=== PATIENT | male | born 1955 | race African-American/Black ===

== ENCOUNTER 2024-09-24 10:23 | Inpatient (IN) | payer MEDICARE ==
[2024-09-24] VITALS (8 sets, daily range): BP systolic 137–168; BP diastolic 87–122; TEMP 97.2–99.1; O2SAT 96–98
[~2024-09-24] VITALS: Ht 182.9 cm; Wt 97.7 kg
[2024-09-24 11:15] LABS: BASO # 0.1 10^3/uL (0.0-0.2); BASO % 1.3 % (0.0-1.0); EOS # 0.1 10^3/uL (0.0-0.5); EOS % 2.9 % (0.0-3.0); HEMATOCRIT 47.1 % (42.0-52.0); HEMOGLOBIN 14.4 g/dl (13.5-17.5); LYMPH # 1.3 10^3/uL (1.5-5.0); LYMPH % 29.8 % (24.0-44.0); MEAN CORPUSCULAR HEMOGLOBIN 24.2 pg (27.0-33.0); MEAN CORPUSCULAR HGB CONC 30.6 g/dl (32.0-36.5); MONO # 0.6 10^3/uL (0.0-0.8); MONO % 13.7 % (2.0-8.0); NEUTROPHILS # 2.3 10^3/uL (1.5-8.5); NEUTROPHILS % 52.1 % (36.0-66.0); PLATELET COUNT, AUTOMATED 263 10^3/uL (150-450); RED BLOOD COUNT 5.96 10^6/uL (4.30-6.10); WHITE BLOOD COUNT 4.5 10^3/uL (4.0-10.0)
[2024-09-24 11:29] LABS: INR 1.12; PARTIAL THROMBOPLASTIN TIME 30.3 SECONDS (24.8-34.2); PROTHROMBIN TIME 14.7 SECONDS (12.5-14.5)
[2024-09-24 11:39] LABS: CK-MB VALUE MASS < 1.0 NG/ML (<3.6)
[2024-09-24 11:40] LABS: LIPASE 42 U/L (12-53)
[2024-09-24 11:42] LABS: ALBUMIN 3.3 G/DL (3.2-5.2); ALKALINE PHOSPHATASE 208 U/L (40-129); ALT/SGPT 76 U/L (7.0-40); AST/SGOT 47 U/L (<34); BILIRUBIN,DIRECT 0.5 MG/DL (<0.4); BILIRUBIN,TOTAL 1.1 MG/DL (0.3-1.2); BLOOD UREA NITROGEN 24 MG/DL (9-23); CARBON DIOXIDE LEVEL 24 MMOL/L (20-31); CHLORIDE LEVEL 106 MMOL/L (98-107); CREATININE FOR GFR 1.47 MG/DL (0.70-1.30); GLOMERULAR FILTRATION RATE 50.9 (>49); GLUCOSE, FASTING 98 MG/DL (74-106); POTASSIUM SERUM 4.6 MMOL/L (3.5-5.1); SODIUM LEVEL 139 MMOL/L (136-145); TOTAL PROTEIN 7.2 G/DL (5.7-8.2)
[2024-09-24 11:44] LABS: THYROID STIMULATING HORMONE 1.943 uIU/ML (0.55-4.78)
[2024-09-24 11:45] LABS: FREE T4 1.56 NG/DL (0.89-1.76)
[2024-09-24 11:46] LABS: CPK CREATINE PHOSPHOKINASE 91 U/L (46-171); MB/CK RELATIVE INDEX 1.09 (< OR =4)
[2024-09-24] MEDS: FUROSEMIDE 40MG/4ML VIAL IV ONE (12:47)
[2024-09-24] MEDS: NITROGLYCERIN 0.4MG SUBL TABLET SL STA (12:47)
[2024-09-24] MEDS ORDERED: ISOVUE-370 76% 100ML VIAL As Ordered ONE (12:51)
[2024-09-24 13:31] LABS: PROCALCITONIN 0.12 ng/ml
[2024-09-24 13:41] LABS: APPEARANCE, URINE CLEAR (CLEAR); BACTERIA, URINE AUTO NEGATIVE (NEGATIVE); BILIRUBIN, URINE AUTO NEGATIVE (NEGATIVE); BLOOD, URINE BLOOD NEGATIVE (NEGATIVE); COLOR, URINE YELLOW (YELLOW); GLUCOSE, URINE (UA) AUTO NEGATIVE (NEGATIVE); KETONE, URINE AUTO NEGATIVE (NEGATIVE); LEUKOCYTE ESTERASE, URINE AUTO NEGATIVE (NEGATIVE); NITRITE, URINE AUTO NEGATIVE (NEGATIVE); PROTEIN, URINE AUTO 1+ mg/dL (NEGATIVE); RBC, URINE AUTO 0 /HPF (0-3); SPECIFIC GRAVITY URINE AUTO 1.014 (1.002-1.035); SQUAMOUS EPITHELIAL CELL UR AU 0 /HPF (0-6); UROBILINOGEN, URINE AUTO 0.2 mg/dL (0.0-2.0); WBC, URINE AUTO 1 /HPF (0-3)
[2024-09-24 13:44] LABS: HEMOGLOBIN A1c 6.2 % (4.0-6.0)
[2024-09-24] MEDS ORDERED: LABETALOL 100MG/20ML VIAL IV PRN (15:10)
[2024-09-24] MEDS: METOPROLOL TART 25 MG TABLET PO ONE (15:15)
[2024-09-24] MEDS: amLODIPine 5 MG TAB PO ONE ×2 (15:15→16:52)
[2024-09-24 15:33] LABS: HEPATITIS B SURFACE ANTIGEN NEGATIVE (NEGATIVE)
[2024-09-24 15:54] LABS: HEPATITIS B CORE ANTIBODY IGM NEGATIVE (NEGATIVE); HEPATITIS C VIRUS ABY INDEX 0.03 INDEX (<0.8)
[2024-09-24] MEDS ORDERED: HOME MED LIST COMPLETE! XX SCH (15:55)
[2024-09-24 16:24] LABS: PH BODY FLUID 7.631 UNITS (NOT ESTABLISHED); SOURCE, BODY FLUID pH PLEURAL
[2024-09-24 16:40] LABS: LDH LACTATE DEHYDROGENASE 250 U/L (120-246)
[2024-09-24 16:56] LABS: PLEURAL FL COLOR YELLOW (COLORLESS); SOURCE, BODY FLUID PLEURAL
[2024-09-24 16:57] LABS: APPEARANCE, BODY FLUID HAZY (CLEAR)
[2024-09-24 17:06] LABS: SOURCE, BODY FLUID ALBUMIN PLEURAL
[2024-09-24 17:11] LABS: SOURCE, BODY FLUID GLUCOSE PLEURAL; SOURCE, BODY FLUID TRIG PLEURAL; TRIGLYCERIDE, BODY FLUID 25 MG/DL (NOT ESTABLISHED)
[2024-09-24 17:12] LABS: AMYLASE, BODY FLUID 44 U/L (NOT ESTABLISHED); LDH, BODY FLUID 126 U/L (NOT ESTABLISHED); SOURCE, BODY FLUID AMYLASE PLEURAL; SOURCE, BODY FLUID LDH PLEURAL
[2024-09-24 17:13] LABS: CHOLESTEROL, BODY FLUID 57 MG/DL (NOT ESTABLISHED); SOURCE, BODY FLUID CHOL PLEURAL
[2024-09-24 17:52] LABS: SOURCE, BODY FLUID TOT PROTEIN PLEURAL; TOTAL PROTEIN, BODY FLUID 2.8 G/DL (NOT ESTABLISHED)
[2024-09-24] MEDS: METOPROLOL TART 25 MG TABLET PO SCH (21:00)
[2024-09-24] MEDS: HEPARIN SOD (PORCINE) 5000UNITS/ML 1ML VIAL/SYRINGE SC SCH (21:00)
[2024-09-25 04:06] VITALS: BP 137/95; TEMP 97.7; O2SAT 97
[2024-09-25 05:10] LABS: HEMATOCRIT 47.7 % (42.0-52.0); HEMOGLOBIN 14.5 g/dl (13.5-17.5); MEAN CORPUSCULAR HGB CONC 30.4 g/dl (32.0-36.5); MEAN CORPUSCULAR VOLUME 78.8 fl (80.0-96.0); PLATELET COUNT, AUTOMATED 260 10^3/uL (150-450); RED BLOOD COUNT 6.05 10^6/uL (4.30-6.10); WHITE BLOOD COUNT 5.3 10^3/uL (4.0-10.0)
[2024-09-25 05:26] LABS: BLOOD UREA NITROGEN 28 MG/DL (9-23); CALCIUM LEVEL 10.2 MG/DL (8.3-10.6); CARBON DIOXIDE LEVEL 26 MMOL/L (20-31); CHLORIDE LEVEL 106 MMOL/L (98-107); CHOLESTEROL LEVEL 180 MG/DL (<200); CHOLESTEROL RISK RATIO 4.43 (<5); GLOMERULAR FILTRATION RATE > 60.0 (>49); GLUCOSE, FASTING 98 MG/DL (74-106); HDL CHOLESTEROL 40.6 MG/DL (>40); NON-HDL-C 139.4 MG/DL; POTASSIUM SERUM 4.6 MMOL/L (3.5-5.1); SODIUM LEVEL 138 MMOL/L (136-145); TRIGLYCERIDES LEVEL 77 MG/DL (<150)
[2024-09-25 07:40] VITALS: BP_SYST 137; BP_DIAS 101; BP_DIAS 98; TEMP 98.4; O2SAT 98
[2024-09-25] MEDS: amLODIPine 5 MG TAB PO SCH (09:20)
[2024-09-25] MEDS: ATORVASTATIN 20 MG TAB PO SCH (09:20)
[2024-09-25] MEDS: FUROSEMIDE 20MG/2ML VIAL IV SCH (09:21)
[2024-09-25] MEDS ORDERED: PILL CUTTER 1 EACH XX PRN (10:50)
[2024-09-25 11:33] LABS: ALBUMIN 2.9 G/DL (3.2-5.2); BILIRUBIN,DIRECT 0.4 MG/DL (<0.4); TOTAL PROTEIN 6.8 G/DL (5.7-8.2)
[2024-09-25 11:58] VITALS: BP 140/95; TEMP 98.6; O2SAT 95
[2024-09-25] MEDS: DAPAGLIFLOZIN PROPANEDIOL 10MG TABLET (FARXIGA) PO SCH (14:21)
[2024-09-25] MEDS: LOSARTAN 25 MG TAB PO SCH (14:22)
[2024-09-25 16:00] VITALS: BP 141/98; TEMP 98.3; O2SAT 96
[2024-09-25] MEDS: FUROSEMIDE 40MG/4ML VIAL IV SCH (17:05)
[2024-09-25 19:33] VITALS: BP 136/82; TEMP 98.8; O2SAT 97
[2024-09-25] MEDS: METOPROLOL SUCC *XL* 25MG TAB (TopROL *XL*) PO SCH (20:56)
[2024-09-26 00:13] VITALS: BP 141/90; TEMP 98.4; O2SAT 97
[2024-09-26 03:28] VITALS: BP 150/94; TEMP 98.2; O2SAT 98
[2024-09-26 07:50] VITALS: BP 158/96; TEMP 98.7; O2SAT 95
[2024-09-26 08:00] LABS: BASO # 0.1 10^3/uL (0.0-0.2); BASO % 1.2 % (0.0-1.0); EOS # 0.3 10^3/uL (0.0-0.5); EOS % 5.6 % (0.0-3.0); HEMATOCRIT 46.5 % (42.0-52.0); HEMOGLOBIN 14.4 g/dl (13.5-17.5); LYMPH # 1.4 10^3/uL (1.5-5.0); LYMPH % 27.6 % (24.0-44.0); MEAN CORPUSCULAR HEMOGLOBIN 24.3 pg (27.0-33.0); MEAN CORPUSCULAR VOLUME 78.5 fl (80.0-96.0); MONO # 0.6 10^3/uL (0.0-0.8); MONO % 11.9 % (2.0-8.0); NEUTROPHILS # 2.7 10^3/uL (1.5-8.5); NEUTROPHILS % 53.3 % (36.0-66.0); PLATELET COUNT, AUTOMATED 269 10^3/uL (150-450); RED BLOOD COUNT 5.92 10^6/uL (4.30-6.10)
[2024-09-26 08:27] LABS: ALBUMIN 3.1 G/DL (3.2-5.2); ALKALINE PHOSPHATASE 202 U/L (40-129); ALT/SGPT 58 U/L (7.0-40); AST/SGOT 30 U/L (<34); BILIRUBIN,TOTAL 0.9 MG/DL (0.3-1.2); BLOOD UREA NITROGEN 28 MG/DL (9-23); CALCIUM LEVEL 10.1 MG/DL (8.3-10.6); CARBON DIOXIDE LEVEL 28 MMOL/L (20-31); CHLORIDE LEVEL 105 MMOL/L (98-107); CREATININE FOR GFR 1.46 MG/DL (0.70-1.30); GLOMERULAR FILTRATION RATE > 60.0 (>49); GLUCOSE, FASTING 94 MG/DL (74-106); POTASSIUM SERUM 3.9 MMOL/L (3.5-5.1); SODIUM LEVEL 138 MMOL/L (136-145); TOTAL PROTEIN 7.4 G/DL (5.7-8.2)
[2024-09-26] MEDS ORDERED: METOPROLOL SUCC *XL* 25MG TAB (TopROL *XL*) PO SCH (09:00)
[2024-09-26] MEDS ORDERED: FURO40TA2 PO (09:27)
[2024-09-26] MEDS ORDERED: ATOR40TA75 PO (09:27)
[2024-09-26] MEDS ORDERED: FARX1TAB3 PO (09:27)
[2024-09-26] MEDS ORDERED: SPIR-10 PO (09:27)
[2024-09-26] MEDS ORDERED: METO1TAB7 PO (09:27)
[2024-09-26] MEDS ORDERED: LOSA50TA28 PO (09:27)
[2024-09-26] MEDS ORDERED: METO5TA PO (09:41)
[2024-09-26 10:15] VITALS: BP 142/94
[2024-09-28 17:57] LABS: URINE STREP PNEUMONIAE ANTIGEN NOT DETECTED (NOT DETECT)
== END 2024-09-26 15:31 | disposition home or self-care (01) | DRG 291 ==
LOC: M ED 10:23 → M ED INP 15:02 → M PCU 16:08
PROVIDERS: ADMIT Internal Medicine; ATTEND Internal Medicine
PROC: 0W993ZZ Drainage of Right Pleural Cavity, Percutaneous Approach (ICD-10-PCS; principal; 2024-09-24 15:23)
DX: I13.0 Hypertensive heart and chronic kidney disease with heart failure and stage 1 through stage 4 chronic kidney disease, or unspecified chronic kidney disease (principal); I50.23 Acute on chronic systolic (congestive) heart failure; J90 Pleural effusion, not elsewhere classified; I16.1 Hypertensive emergency; N17.9 Acute kidney failure, unspecified; E78.5 Hyperlipidemia, unspecified; R74.01 Elevation of levels of liver transaminase levels; R73.03 Prediabetes; N18.9 Chronic kidney disease, unspecified; Z79.899 Other long term (current) drug therapy; F17.210 Nicotine dependence, cigarettes, uncomplicated

== ENCOUNTER → 2025-03-08 | Outpatient (CLI) | payer MEDICARE, SELFPAY ==
[~2025-03-08] MED LIST: ATOR40TA75 PO; FARX1TAB3 PO; FURO40TA2 PO; LOSA50TA28 PO; METO1TAB7 PO; METO5TA PO; SPIR-10 PO
[2025-03-08 17:51] LABS: HEMATOCRIT 47.1 % (42.0-52.0); HEMOGLOBIN 14.4 g/dl (13.5-17.5); MEAN CORPUSCULAR HEMOGLOBIN 26.6 pg (27.0-33.0); MEAN CORPUSCULAR HGB CONC 30.6 g/dl (32.0-36.5); MEAN CORPUSCULAR VOLUME 87.1 fl (80.0-96.0); PLATELET COUNT, AUTOMATED 216 10^3/uL (150-450); RED BLOOD COUNT 5.41 10^6/uL (4.30-6.10); WHITE BLOOD COUNT 4.9 10^3/uL (4.0-10.0)
[2025-03-08 17:58] LABS: CALCIUM LEVEL 10.2 MG/DL (8.3-10.6); CHOLESTEROL RISK RATIO 4.67 (<5); CREATININE FOR GFR 1.51 MG/DL (0.70-1.30); GLOMERULAR FILTRATION RATE 50.3 (>49); HDL CHOLESTEROL 48.6 MG/DL (>40); LDL CHOLESTEROL 144.2 MG/DL (<100); NON-HDL-C 178.4 MG/DL; POTASSIUM SERUM 4.8 MMOL/L (3.5-5.1)
[2025-03-08 17:59] LABS: THYROID STIMULATING HORMONE 1.288 uIU/ML (0.55-4.78)
[2025-03-08 18:06] LABS: HEMOGLOBIN A1c 5.6 % (4.0-6.0)
== END ==
LOC: M PLALAB 15:06
PROVIDERS: ATTEND Student in an Organized Health Care Education/Training Program
DX: I50.20 Unspecified systolic (congestive) heart failure (principal)

== ENCOUNTER → 2025-06-21 | Outpatient (CLI) | payer MEDICARE, SELFPAY ==
[2025-06-21 17:49] LABS: ALT/SGPT 57.0 U/L (7.0-40); AST/SGOT 36.0 U/L (<34); CALCIUM LEVEL 10.7 MG/DL (8.3-10.6); CARBON DIOXIDE LEVEL 26.0 MMOL/L (20-31); CHLORIDE LEVEL 102.0 MMOL/L (98-107); CREATININE FOR GFR 1.54 MG/DL (0.70-1.30); GLOMERULAR FILTRATION RATE 49.1 (>49); POTASSIUM SERUM 5.4 MMOL/L (3.5-5.1); SODIUM LEVEL 138.0 MMOL/L (136-145)
== END ==
LOC: M PLALAB 15:22
DX: I50.20 Unspecified systolic (congestive) heart failure (principal)

== ENCOUNTER → 2025-06-21 | Outpatient (REF) | payer MEDICARE | LOC: M SFHCPLAZ 15:11 | PROVIDERS: ATTEND Student in an Organized Health Care Education/Training Program | DX: Z53.9 Procedure and treatment not carried out, unspecified reason (principal) ==

== ENCOUNTER → 2025-06-23 | Outpatient (REF) | payer MEDICARE | LOC: M SFHCPLAZ 20:00 | DX: Z53.9 Procedure and treatment not carried out, unspecified reason (principal) ==

== ENCOUNTER → 2025-08-17 | Outpatient (CLI) | payer MEDICARE, SELFPAY ==
[2025-08-17 15:13] LABS: ESTIMATED AVERAGE GLUCOSE 137.0 MG/DL (60-110)
[2025-08-17 15:28] LABS: TOTAL 25(OH) VITAMIN D 26.8 NG/ML (20.0-100.0)
[2025-08-17 15:33] LABS: ALT/SGPT 27.0 U/L (7.0-40); AST/SGOT 22.0 U/L (<34); CALCIUM LEVEL 9.5 MG/DL (8.3-10.6); CARBON DIOXIDE LEVEL 25.0 MMOL/L (20-31); CHLORIDE LEVEL 108.0 MMOL/L (98-107); CHOLESTEROL LEVEL 259.0 MG/DL (<200); CHOLESTEROL RISK RATIO 5.63 (<5); CREATININE FOR GFR 1.52 MG/DL (0.70-1.30); GLOMERULAR FILTRATION RATE 49.6 (>49); LDL CHOLESTEROL 192.2 MG/DL (<100); MAGNESIUM LEVEL 2.0 MG/DL (1.8-2.4); NON-HDL-C 213.0 MG/DL; POTASSIUM SERUM 4.8 MMOL/L (3.5-5.1); SODIUM LEVEL 138.0 MMOL/L (136-145); TRIGLYCERIDES LEVEL 104.0 MG/DL (<150)
== END ==
LOC: M PLALAB 11:02
DX: E83.52 Hypercalcemia (principal); E87.5 Hyperkalemia; Z13.1 Encounter for screening for diabetes mellitus; E78.2 Mixed hyperlipidemia

== ENCOUNTER → 2025-08-17 | Outpatient (REF) | payer MEDICARE | LOC: M SFHCPLAZ 10:45 | PROVIDERS: ATTEND Family Medicine | DX: Z53.9 Procedure and treatment not carried out, unspecified reason (principal); E87.5 Hyperkalemia; Z13.1 Encounter for screening for diabetes mellitus; E78.2 Mixed hyperlipidemia ==